=== PATIENT | male | born 1965 | race Caucasian/White ===

== ENCOUNTER → 2018-05-08 | Outpatient (CLI) | payer MEDICARE ==
--- NOTE | 2018-05-08 15:41 | RAD ---
EXAM DESCRIPTION: Lumbar Spine 5 Views CLINICAL HISTORY: M54.5 COMPARISON: None Available. TECHNIQUE: Five views lumbar spine FINDINGS: Five views of the lumbar spine demonstrate degenerative disc narrowing at L5-S1 with advanced sclerosis involving the facet joints at this location as well as L3-4 and L4-5. Vertebral height is maintained with no malalignment. Mild anterior degenerative lipping is noted. IMPRESSION: Degenerative disc changes L5-S1 with moderate lower lumbar facet sclerosis. Electronically signed by: Nic Isidro MD 05/08/2018 3:39 PM [facility] [[email or web address]]
== END ==
LOC: RAD 13:56
PROVIDERS: ATTEND Nurse Practitioner Family
DX: M51.37 Other intervertebral disc degeneration, lumbosacral region (principal)

== ENCOUNTER → 2018-06-29 | Outpatient (CLI) | payer MEDICARE ==
--- NOTE | 2018-06-29 16:24 | MRI ---
EXAM DESCRIPTION: Lumbar Spine w/o Contrast : Magnetic Resonance Imaging. CLINICAL HISTORY: M54.17 COMPARISON: LUMBAR TECHNIQUE: Multiplanar, multiple standard sequences, non contrast MRI, lumbar spine. FINDINGS: L5-S1: Disc desiccation and minimal disc space loss. Left posterior 6 mm protrusion abutting abutting the thecal sac and the descending left S1 nerve in the left lateral recess. Hyperintense T2 annular fissure in the protruding disc. AP canal diameter 12 mm. Moderate bony narrowing of the bilateral foramina. Facet joints and ligaments unremarkable. L4-L5: Minimal disc desiccation with disc space preserved. Hyperintense T2 weighted annular fissure along with disc bulge into the left foramen abutting the exiting left L4 nerve. Mild narrowing of the right foramen. Posterior elements unremarkable. Shortened bony pedicles. AP canal diameter 10 mm. L3-4: Normal signal in the disc. Disc space preserved. Posterior elements unremarkable. Bilateral shortened pedicles. AP canal diameter 12 mm. Bilateral mild foraminal narrowing. L2-L3: Normal signal in the disc with disc space preserved. No bulging. Minimal hypertrophy of the flavum ligaments. Minimal shortening of the pedicles. AP canal diameter 12 mm. Bilateral mild foraminal narrowing. L1-L2: Minimal disc desiccation more anterior. Disc space preserved. Bilateral pedicle shortening. Posterior elements unremarkable. AP canal diameter 11 mm. Mild bilateral foraminal narrowing. T12-L1: Normal signal in the disc with disc space preserved. Posterior elements unremarkable. Canal and foramina are patent. Conus terminates at this level. Circumscribed lesion in the T12 vertebral body hyperintense on T1 and T2 sequences consistent with a hemangioma. No scoliosis. Paravertebral soft tissues negative.. Normal marrow signal in the remaining vertebral bodies and the posterior elements. Vertebral bodies are not compressed at any level. IMPRESSION: 1. Left paracentral L5-S1 disc protrusion with annular fissure abutting the thecal sac and the descending left S1 nerve. Moderate canal narrowing. 2. L4-5 disc bulging into the left foramen with annular fissure abutting the exiting left L4 nerve. Borderline mild central canal stenosis. 3. 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 Electronically signed by: Lakhwinder Gray MD 06/29/2018 4:20 PM CDT
== END ==
LOC: MRI 13:38
PROVIDERS: ATTEND Nurse Practitioner
DX: M51.16 Intervertebral disc disorders with radiculopathy, lumbar region (principal)